=== PATIENT | male | born 1990 | race Two or more races ===

== ENCOUNTER 2025-02-13 19:14 | Emergency (ER) | payer OTHER ==
[~2025-02-13] VITALS: Ht 182.9 cm; Wt 77.1 kg
[2025-02-14 08:00] VITALS: TEMP 98.1
[2025-02-14 08:32] VITALS: BP 121/64; O2SAT 98
== END 2025-02-14 08:20 | disposition home or self-care (01) ==
LOC: ER 19:17
DX: F41.9 Anxiety disorder, unspecified (principal); R06.00 Dyspnea, unspecified; F17.200 Nicotine dependence, unspecified, uncomplicated; J02.8 Acute pharyngitis due to other specified organisms; B97.89 Other viral agents as the cause of diseases classified elsewhere
CPT/HCPCS: 71045-TC